=== PATIENT | female | born 2000 | race American Indian/Alaskan Native ===

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

== ENCOUNTER 2025-01-11 10:48 | Emergency (ER) | payer MEDICAID ==
[~2025-01-11] VITALS: Ht 167.6 cm; Wt 64.9 kg
[2025-01-11 10:58] VITALS: BP 114/62; PULSE 111; RESP 18; O2SAT 100
--- NOTE | 2025-01-11 11:29 | Physician Documentation ---
History of Present Illness ~ Chief Complaint: Anxiety Stated Complaint: ANXIETY Time Seen by MD: 11:01 Primary Medical Doctor: HARLAN KRAUSE 24-year-old female presents to the ED with complaints of increased anxiety and feeling like her heart is going to jump out of her chest he denies any chest pain shortness of breath nausea vomiting or numbness or tingling. However the patient states that she used relatively large amounts of cocaine earlier this morning. She states she doesnt normally used recreational drugs Day of Onset: Jan 11, 2025 Medication Reconciliation Allergies: Uncoded Allergies: SULFA (Allergy, Unknown, 01/11/25) Scheduled Ciprofloxacin Hcl/Hc Otic Susp* (Cipro Hc Otic Susp*), 3 DRP OT BID Ibuprofen* (Motrin*), 800 MG PO TID Miscellaneous Medications Home Med List (No Home Medications), (Reported) Past Medical History Past Medical History: Anxiety Past Surgical History: noncontributory Alcohol Use: Heavy Drug Use: marijuana Lives In: Home Review of Systems All Other Systems at this time: Reviewed and Negative ROS As stated above in the HPI, otherwise all systems are reviewed and negative. Physical Exam Vital Signs: Temperature: 99.9, Source: Temporal, Heart Rate: 111, Respiratory Rate: 18, BP: 114/62, Pulse Oximetry: 100, Weight: 64.900 Oxygen Flow Rate: 0 Physical Exam General: Alert, no apparent distress. Respiratory: Lungs clear, no respiratory distress. Chest: No accessory muscle use. Cardiovascular: Regular rate and rhythm, no murmurs. Neurologic: Oriented x4. Psychiatric: Normal mood and affect. Skin: Normal color, warm and dry. No edema, no ecchymosis. Progress Results/Orders Results/Orders Completed Orders - JEROD NAVARRO NP Diazepam Inj (Valium Inj) (01/11/25 11:25) Medications Received in ER Medications (Trade) Dose Ordered Sig/Kali Route PRN Reason Start Time Stop Time Status Last Admin Dose Admin (Valium inj) 5 mg ONCE ONCE IM 01/11/25 11:25 01/11/25 11:26 DC 01/11/25 11:44 5 MG Vital Signs 01/11/25 01/11/25 10:58 12:11 Temp 99.9 99.9 Pulse 111 Resp 18 B/P (MAP) 114/62 Pulse Ox 100 O2 Flow Rate 0 Medical Decision Making Findings Based on my evaluation of the patient, she appears to be coming off of cocaine in the sympathomimetic activity is likely causing her anxiety . I treated her with valium and she reported improved symptoms Differential Dx:Considerations: Include: Alcohol abuse, Anxiety, Bipolar disorder, Conversion disorder, Depression, Encephaloathy, Homicidal, Panic disorder, Personality disorder, Schizophrenia, Substance abuse, Suicidal, Other Departure Disposition: 01 HOME / SELF CARE / HOMELESS Impression: Primary Impression: Anxiety Condition: Stable Discharge Instructions: Panic Attack Referrals: NO PRIMARY CARE PROVIDER (PCP) Education Educated: Patient Educated regarding: diagnosis Signature Scribe Signature: g Attestation: Scribed for Jerod Navarro Escalator Attendant by Jerod Hobson NP . 01/11/25 18:28 JEROD NAVARRO NP Jan 11, 2025 11:29
[2025-01-11] MEDS: diazepam inj 5 MG/ML inj. IM ONE (11:44)
[2025-01-11 12:11] VITALS: TEMP 99.9
== END 2025-01-11 12:13 | disposition home or self-care (01) ==
LOC: ER 10:49
DX: F41.9 Anxiety disorder, unspecified (principal); F12.90 Cannabis use, unspecified, uncomplicated; F10.90 Alcohol use, unspecified, uncomplicated; Z79.899 Other long term (current) drug therapy; Y90.9 Presence of alcohol in blood, level not specified
CPT/HCPCS: 96372; 99283; J3360

== ENCOUNTER 2025-02-10 18:17 | Emergency (ER) | payer MEDICAID ==
[~2025-02-10] VITALS: Ht 170.2 cm; Wt 53.1 kg
[2025-02-10 18:40] VITALS: BP 99/65; PULSE 86; RESP 15; O2SAT 99
--- NOTE | 2025-02-10 18:54 | Physician Documentation ---
History of Present Illness ~ Chief Complaint: Vaginal Bleeding Stated Complaint: COMPLICATIONS Time Seen by MD: 19:35 Primary Medical Doctor: [facility] Patient is [age]-year-old female that presents to the emergency department for vaginal bleeding post miscarriage on the 23 of January. Patient reports that she has continued to have bleeding with clots she called her OBGYN today the OBGYN referred her to the emergency department today. She reports that she feels slightly dizzy. Patient reports that the was approximately 3 weeks at the time of miscarriage. Medication Reconciliation Allergies: Coded Allergies: Sulfa (Sulfonamide Antibiotics) (Verified Allergy, Unknown, 02/10/25) Scheduled Ciprofloxacin Hcl/Hc Otic Susp* (Cipro Hc Otic Susp*), 3 DRP OT BID Ibuprofen* (Motrin*), 800 MG PO TID Miscellaneous Medications Home Med List (No Home Medications), (Reported) Past Medical History Past Medical History: Anxiety Past Surgical History: noncontributory Alcohol Use: Heavy Drug Use: marijuana Lives In: Home Review of Systems ROS As stated above in the HPI, otherwise all systems are reviewed and negative. Physical Exam Vital Signs: Heart Rate: 86, Respiratory Rate: 15, BP: 99/65, Pulse Oximetry: 99, Weight: 53.100 Physical Exam VITALS: Reviewed and as above. GENERAL: Alert, no apparent distress. HEENT: Normocephalic, atraumatic, PERRL, EOMI, dry mucosa, no erythema RESPIRATORY: Lungs clear, normal breath sounds, no respiratory distress. CHEST: No accessory muscle use, no retractions CV: Regular rate, rhythm, no edema, no murmur, No: JVD GI: Soft, parents with deep palpation, bowels sounds present, no rebound, guarding, or rigidity BACK: No CVA tenderness, or swelling MUSCULOSKELETAL No deformities, no edema SKIN: Warm and dry, no rash NEURO: Oriented x4, No motor or sensory deficit PSYCH: Normal mood and affect, no agitation Progress Results/Orders Results/Orders Orders - JAMILA COXP Ultrasound Pelvis W/Orwo Dplx (02/10/25 ) Completed Orders - JAMILA COX FABRICATING MACHINE OPERATOR CMP (02/10/25 18:44) Cbc/Diff (02/10/25 18:44) Abo/Rh (Type Only) (02/10/25 18:44) Ultrasound Pelvis W/Orwo Dplx (02/10/25 ) Hcg Serum Qt (02/10/25 18:44) Vital Signs 02/10/25 18:40 Pulse 86 Resp 15 B/P (MAP) 99/65 Pulse Ox 99 Laboratory Tests Test 02/10/25 18:56 White Blood Count 7.4 Red Blood Count 4.21 Hemoglobin 13.1 Hematocrit 38.4 Mean Corpuscular Volume 91.2 Mean Corpuscular Hemoglobin 31.0 Mean Corpuscular Hemoglobin Concent 34.0 Red Cell Distribution Width 13.3 Platelet Count 338 Mean Platelet Volume 7.6 Neutrophils (%) (Auto) 53.8 Lymphocytes (%) (Auto) 37.4 Monocytes (%) (Auto) 6.3 Eosinophils (%) (Auto) 1.5 Basophils (%) (Auto) 1.0 Neutrophils # (Auto) 4.0 Lymphocytes # (Auto) 2.8 Monocytes # (Auto) 0.5 Eosinophils # (Auto) 0.1 Basophils # (Auto) 0.1 CBC Comment Sodium Level 141 Potassium Level 3.7 Chloride Level 104 Carbon Dioxide Level 27.5 Anion Gap 10 Blood Urea Nitrogen 15 Creatinine 0.79 Estimated GFR/1.73 m2 90 BUN/Creatinine Ratio 19.0 Glucose Level 93 Calcium Level 8.9 Total Bilirubin 0.9 Aspartate Amino Transf (AST/SGOT) 33 Alanine Aminotransferase (ALT/SGPT) 25 Alkaline Phosphatase 97 Total Protein 7.3 Albumin 3.8 Globulin 3.5 Albumin/Globulin Ratio 1.1 HCG Beta Subunit 426 Chemistry Comments Medical Decision Making Findings Patient presents with vaginal bleeding likely secondary to known miscarriage on January 23. Based on History, Exam, and ED Workup patients presentation not consistent with ectopic , molar , life-threatening coagulopathy, trauma, serious bacterial infection. Patient he went ultrasound confirmed no retained product of conception at this time. Patient is hemodynamically stable no concerning findings in her laboratory diagnostics. Patient will follow up with OBGYN. Patient provided with strict return precautions to the emergency department. Departure Disposition: HOME / SELF CARE / HOMELESS Impression: Primary Impression: Vaginal bleeding Additional Impressions: Miscarriage Complete miscarriage Condition: Stable Discharge Instructions: Miscarriage, [id number] Additional Instructions: atient presents with vaginal bleeding likely secondary to known miscarriage on January 23. Based on History, Exam, and ED Workup patients presentation not consistent with ectopic , molar , life-threatening coagulopathy, trauma, serious bacterial infection. Patient he went ultrasound confirmed no retained product of conception at this time. Patient is hemodynamically stable no concerning findings in her laboratory diagnostics. Patient will follow up with OBGYN. Patient provided with strict return precautions to the emergency department. Please return to the emergency department if any worsening or recurrent symptoms shortness of breath lightheadedness increased bleeding soaking through a pad more than 1 an hour significant abdominal pain, or any other concerning symptoms. Follow up with your primary care provider and OBGYN on Thursday. Referrals: NO PRIMARY CARE PROVIDER (PCP) Education Educated: Patient Educated regarding: diagnosis, treatment, need for follow up Signature Scribe Signature: A Attestation: Scribed for Jamila Cox by PONCE Redd . 02/10/25 19:45 JAMILA COX Feb 10, 2025 18:54
[2025-02-10 19:10] LABS: MEAN PLATELET VOLUME 7.6 FL (7.4-10.4); RED CELL DISTRIBUTION WIDTH 13.3 % (11.5-14.5)
[2025-02-10 19:22] LABS: CREATININE 0.79 MG/DL (0.40-0.90); TOTAL CARBON DIOXIDE 27.5 MMOL/L (24-32); eCRCL 93 ML/MIN; eGFR 90 ML/MIN
--- NOTE | 2025-02-10 20:35 | RADIOLOGY REPORT ---
INDICATION: Vaginal Bleeding TECHNIQUE: Multiple real-time grayscale transabdominal sonographic images along with color and duplex Doppler of the uterus and ovaries were obtained. COMPARISON: None FINDINGS: Uterus measures 9.9 x 4.1 x 5.1 cm. No retained products of conception is noted. Endometrium measures 1.6 mm. Right ovary measures 2.9 x 1.9 x 2.0 cm and left ovary measures 3.0 x 2.0 x 1.9 cm. Normal vascular f low is noted within bilateral ovaries. No free fluid is noted. IMPRESSION: 1. No sonographic evidence of retained products of conception. 2. No acute abnormalities.
== END 2025-02-10 19:54 | disposition home or self-care (01) ==
LOC: ER 18:17
DX: O03.9 Complete or unspecified spontaneous abortion without complication (principal); F41.9 Anxiety disorder, unspecified; F12.90 Cannabis use, unspecified, uncomplicated; F10.90 Alcohol use, unspecified, uncomplicated; Z88.2 Allergy status to sulfonamides; Z79.899 Other long term (current) drug therapy; Y90.9 Presence of alcohol in blood, level not specified
CPT/HCPCS: 36415; 76856; 80053; 84702; 85025; 86900; 86901; 93976; 99284